=== PATIENT | female | born 1935 | race Caucasian/White ===

== ENCOUNTER 2016-10-22 09:47 | Day surgery (SDC) | payer MEDICARE ==
[~2016-10-22 09:47] MED LIST: Cyanocobalamin (Vitamin B12) 1,000 MCG/ML SDV IM ONE; Glycopyrrolate 0.2 MG/ML 2 ML SYRINGE IVPUSH ONE; Lactated Ringers 1,000 ML IV ONE; MVI, Adult with Vitamin K 10 ML, Thiamine 200 MG, Chromium/Copper/Mang/Selen/Zn 1 ML in... IV ONE; Propofol 200 MG/20 ML SDV ONE
[2016-10-22] MEDS ORDERED: fentaNYL 100 MCG/2 ML SDV ONE (10:48)
[2016-10-22] MEDS ORDERED: Propofol 200 MG/20 ML SDV ONE (10:48)
[2016-10-22] MEDS ORDERED: Lidocaine 1% 2 ML ONE (11:02)
[2016-10-22 13:52] VITALS: BP 137/76
--- NOTE | 2016-10-27 15:34 | OR ---
DATE OF PROCEDURE: 10/22/2016 PREOPERATIVE DIAGNOSES: Dysphagia and heartburn, status post laparoscopic adjustable gastric band placement. POSTOPERATIVE DIAGNOSES: 1. Dilated esophagus with retained secretion above laparoscopic adjustable gastric band. 2. Mild antral gastritis. OPERATIVE PROCEDURE: Esophagogastroduodenoscopy with antral biopsies for CLOtest. ANESTHESIA: IV sedation. INDICATION FOR PROCEDURE: This is an 80-year-old status post laparoscopic adjustable gastric band placement in January of 2011. She has recently had increasing problems with dysphagia as well as heartburn and occasional emesis. The band was deflated i.e., all fluid removed from the band yesterday and the patient reports that the symptoms are improved somewhat. Plan is to proceed with upper GI endoscopy for which the band status. Potential risks including bleeding, perforation, aspiration of esophageal contents and such were reviewed, and the patient wishes to proceed. DETAILS OF THE PROCEDURE: The patient was taken to the operating room and placed in a left lateral decubitus position. IV sedation was administered, after which the upper GI endoscope was passed orally into the esophagus. Initially, the patient was noted to have retained secretions in the esophagus. These were evacuated off the esophagus throughout the entire body, but especially the distal aspect was obviously somewhat dilated and there was quite a bit of redness in the area of the esophagogastric junction along with friability of the mucosa at that level. The imprint of the band was appropriately located at a point just below the esophagogastric junction, with no signs of erosion. The scope was easily passed through that area. Retroflexion revealed though once again the imprint of the band, but without signs of erosion within the remainder of the stomach, there was mild redness in the antrum and in the pyloric channel of proximal duodenum were unremarkable. Biopsies were obtained from the antrum and sent for CLOtest for H. pylori. Minimal bleeding from the biopsy site was seen and the procedure was then concluded. The plan will be to start the patient to follow up with Leslie Pinto on 10/27/2016. If she is still having significant problems with regard to dysphagia, heartburn, or emesis, we should, at that, point consider removing the band. Lawrence Mckeon MD /[id number]
== END 2016-10-22 14:51 | disposition home or self-care (01) ==
LOC: JP.SDS 09:47
PROVIDERS: ATTEND Surgery
DX: K22.8 Other specified diseases of esophagus (principal); K31.89 Other diseases of stomach and duodenum; I10 Essential (primary) hypertension; E11.22 Type 2 diabetes mellitus with diabetic chronic kidney disease; I12.9 Hypertensive chronic kidney disease with stage 1 through stage 4 chronic kidney disease, or unspecified chronic kidney disease; N18.4 Chronic kidney disease, stage 4 (severe); Z98.84 Bariatric surgery status; E78.5 Hyperlipidemia, unspecified; J45.909 Unspecified asthma, uncomplicated
CPT/HCPCS: 43239; 87081; J2704; J3411; J3420; J7120; J3010